=== PATIENT | female | born 1985 | race Caucasian/White ===

== ENCOUNTER 2018-08-17 17:06 | Emergency (ER) | payer OTHER, SELFPAY ==
[2018-08-17 17:48] VITALS: BP 128/85; PULSE 74; RESP 18; TEMP 98.2; O2SAT 99
[2018-08-17] MEDS ORDERED: Sodium Chloride 0.9% 1,000 ML IV STA (18:08)
--- NOTE | 2018-08-17 18:16 | ED PDOC ---
HPI: Headache Time Seen by Provider: 08/17/18 18:05 Chief Complaint (Nursing): Headache Chief Complaint (Provider): Headache History Per: Patient History/Exam Limitations: no limitations Onset/Duration Of Symptoms: Days Current Symptoms Are (Timing): Still Present Associated Symptoms: denies: Photophobia, Nausea, Vomiting Additional Complaint(s): 32 year old female with a past medical history of anxiety and asthma who is presenting to the Ed for evaluation of headache onset 4 days ago. 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 She noted that she tried all sorts of over the counter pain medications without relief. Patient reports that the headache is localized to the front of the head and radiates to back of left eye and back of neck. She denies any neck stiffness, fevers, or chills. Of note, patient does admit to a history of migraines but reports that she has not had one since she was young. She also denies any nausea, vomiting, or vision changes. PMD: none provided Past Medical History Reviewed: Historical Data, Nursing Documentation, Vital Signs Vital Signs: Last Vital Signs Temp 98.2 F 08/17/18 17:44 Pulse 74 08/17/18 17:44 Resp 18 08/17/18 17:44 BP 128/85 08/17/18 17:44 Pulse Ox 99 08/17/18 17:44 - Medical History PMH: Anxiety, Asthma - Surgical History Surgical History: No Surg Hx - Family History Family History: States: Unknown Family Hx - Social History Current smoker - smoking cessation education provided: No Alcohol: None Drugs: Denies - Home Medications Home Medications: Ambulatory Orders Medication Instructions Recorded Ciprofloxacin HCl [Cipro] 500 mg PO BID #20 tab 10/17/14 Oxycodone HCl/Acetaminophen 1 tab PO Q8H #10 tab 10/17/14 [Percocet 325 mg-5 mg] Phentermine Hydrochloride 37.5 mg PO DAILY 10/17/14 [Phentermine HCl] Albuterol HFA [Ventolin HFA 90 1 puff IH Q4 PRN #1 unit 11/24/14 mcg/actuation (8 g)] - Allergies Allergies/Adverse Reactions: Allergies Allergy/AdvReac Type Severity Reaction Status Date / Time No Known Allergies Allergy Verified 06/01/14 09:09 Review of Systems ROS Statement: Except As Marked, All Systems Reviewed And Found Negative Constitutional: Negative for: Fever, Chills Eyes: Positive for: Pain. Negative for: Vision Change Gastrointestinal: Negative for: Nausea, Vomiting Musculoskeletal: Positive for: Neck Pain (but no stiffness ) Neurological: Positive for: Headache Physical Exam - Reviewed Nursing Documentation Reviewed: Yes Vital Signs Reviewed: Yes - Physical Exam Appears: Positive for: Non-toxic, No Acute Distress, Uncomfortable Head Exam: Positive for: ATRAUMATIC, NORMAL INSPECTION, NORMOCEPHALIC Skin: Positive for: Normal Color, Warm, DRY Eye Exam: Positive for: EOMI, Normal appearance, PERRL ENT: Positive for: Normal ENT Inspection Neck: Positive for: Normal (no nuchal rigidity ), Painless ROM, Supple Cardiovascular/Chest: Positive for: Regular Rate, Rhythm. Negative for: Murmur Respiratory: Positive for: Normal Breath Sounds. Negative for: Respiratory Distress Extremity: Positive for: Normal ROM, Other (moving all extrmeities equally ). Negative for: Deformity, Swelling Neurologic/Psych: Positive for: Alert, animal eviscerator II-XII (normal ), Oriented, Gait (normal ). Negative for: Motor/Sensory Deficits, Other (slurred speech) - ECG O2 Sat by Pulse Oximetry: 99 (RA) Pulse Ox Interpretation: Normal - Progress ED Course And Treament: ON RE-EXAMINATION AT 19:19PM, PATIENT STATES HEAD RESOLVED TO LEVEL ZERO. Medical Decision Making Medical Decision Making: Time: 18:08 Plan: --ED Urine --IV Fluids --Reglan 10 mg IVP Scribe Attestation: Documented by, Sylvie Baldwin acting as a scribe for Juan Murillo PA-C. Provider Scribe Attestation: All medical record entries made by the Scribe were at my direction and personally dictated by me. I have reviewed the chart and agree that the record accurately reflects my personal performance of the history, physical exam, medical decision making, and the department course for this patient. I have also personally directed, reviewed, and agree with the discharge instructions and disposition. Disposition - Clinical Impression Clinical Impression: Headache - Patient ED Disposition Is Patient to be Admitted: No - Disposition Disposition: Routine/Home Disposition Time: 19:19 Condition: FAIR Instructions: Migraine Headache (DC)
== END 2018-08-17 19:32 | disposition home or self-care (01) ==
LOC: H.ER 17:06
DX: G43.909 Migraine, unspecified, not intractable, without status migrainosus (principal); F41.9 Anxiety disorder, unspecified
CPT/HCPCS: 81025; 96361; 96374; 99285; J2765; J7030